=== PATIENT | male | born 1955 | race African-American/Black ===

== ENCOUNTER 2016-06-27 12:12 | Emergency (ER) | payer OTHER ==
[~2016-06-27] VITALS: Ht 193 cm; Wt 91.0 kg
[2016-06-27 13:42] LABS: BASOPHILS % 0.5 % (0.0-2.0); EOSINOPHILS % 2.1 % (0.0-5.0); HEMATOCRIT. 30.1 % (42.0-52.0); HEMOGLOBIN. 10.1 g/dL (14.0-18.0); MEAN CORPUSCULAR HEMOGLOBIN 27.7 pg (28.0-32.0); MEAN CORPUSCULAR HGB CONC 33.4 g/dL (31.0-37.0); MONOCYTES % 7.3 % (2.0-8.0); NEUTROPHILS % 57.1 % (40.0-76.0); PLATELET 263 x1000/uL (130-400); RED BLOOD CELL COUNT 3.63 mill/uL (4.7-6.1); RED CELL DISTRIBUTION WIDTH 14.3 % (11.6-14.6)
[2016-06-27 13:46] LABS: CHLORIDE 107 mEq/L (98-107)
[2016-06-27 13:50] LABS: ANION GAP 11; CALCIUM 8.9 mg/dL (8.5-10.1); CARBON DIOXIDE 29 mEq/L (21-32); INDEX HEMOLYSI 1 (1-3); INDEX ICTERIC 1 (1-4); INDEX LIPEMIC 1 (1-3); UREA NITROGEN BLOOD 14 mg/dL (7-21)
[2016-06-27 13:55] LABS: eGFR > 60 mL/min (>60)
[2016-06-27 15:26] VITALS: BP 152/95
[2016-06-27] MEDS ORDERED: IBUPROFEN 800MG TABLET PO ONE (17:00)
== END 2016-06-27 17:28 | disposition home or self-care (01) ==
LOC: ER 12:31
DX: M79.604 Pain in right leg (principal); G89.29 Other chronic pain; M54.31 Sciatica, right side; I10 Essential (primary) hypertension; Z85.46 Personal history of malignant neoplasm of prostate
CPT/HCPCS: 36415; 80048; 85025; 99284; Z7610

== ENCOUNTER 2016-09-24 03:03 | Inpatient (IN) | payer OTHER ==
[~2016-09-24] VITALS: Ht 193 cm; Wt 78.2 kg
[2016-09-24 07:31] LABS: BASOPHILS % 0.6 % (0.0-2.0); EOSINOPHILS % 0.6 % (0.0-5.0); HEMATOCRIT. 32.4 % (42.0-52.0); LYMPHOCYTES % 21.1 % (20.0-50.0); MEAN CORPUSCULAR VOLUME 79.8 fL (80.0-94.0); MEAN PLATELET VOLUME 7.7 fl (7.4-10.4); MONOCYTES % 7.4 % (2.0-8.0); NEUTROPHILS % 70.3 % (40.0-76.0); PLATELET 185 x1000/uL (130-400); RED BLOOD CELL COUNT 4.06 mill/uL (4.7-6.1); RED CELL DISTRIBUTION WIDTH 13.2 % (11.6-14.6)
[2016-09-24 07:38] LABS: CHLORIDE 95 mEq/L (98-107)
[2016-09-24 07:50] LABS: CARBON DIOXIDE 28 mEq/L (21-32)
[2016-09-24 08:04] LABS: CLARITY URINE CLEAR (CLEAR); COLOR URINE YELLOW (YELLOW); GLUCOSE URINE NEGATIVE (NEGATIVE); KETONES URINE TRACE (NEGATIVE); LEUKOCYTE ESTERASE URINE NEGATIVE (NEGATIVE); NITRITE URINE NEGATIVE (NEGATIVE); OCCULT BLOOD URINE NEGATIVE (NEGATIVE); PROTEIN URINE NEGATIVE (NEGATIVE); SPECIFIC GRAVITY URINE 1.014 (1.005-1.030); UROBILINOGEN URINE 0.2 E.U./dL (0.2-1.0)
[2016-09-24] MEDS ORDERED: IBUPROFEN 600MG TABLET PO ONE (08:15)
[2016-09-24] MEDS ORDERED: CYCLOBENZAPRINE 10MG TABLET PO ONE (08:15)
[2016-09-24] MEDS ORDERED: SODIUM CHLORIDE 0.9% 1,000 ML IV ONE (12:26)
[2016-09-24] MEDS ORDERED: DEXAMETHASONE 10MG/ML 1ML VIAL IV ONE (12:30)
[2016-09-24 12:48] LABS: INR 1.1; PARTIAL THROMBOPLASTIN TIME 30.2 sec (24.0-34.0); PROTHROMBIN TIME 11.7 sec
[2016-09-24 13:59] LABS: *AMPHETAMINES SCREEN URINE NEGATIVE (NEGATIVE); *BARBITURATES SCREEN URINE NEGATIVE (NEGATIVE); *BENZODIAZEPINES SCREEN URINE NEGATIVE (NEGATIVE); *COCAINE SCREEN URINE PRESUMTIVE POSITIVE (NEGATIVE); CANNABINOID URINE SCREEN NEGATIVE (NEGATIVE); METHADONE URINE SCREEN NEGATIVE (NEGATIVE); OPIATES URINE SCREEN PRESUMTIVE POSITIVE (NEGATIVE); PHENCYCLIDINE URINE SCREEN NEGATIVE (NEGATIVE)
[2016-09-24 16:49] VITALS: BP 124/76
[2016-09-24 17:00] VITALS: BP 135/75
[2016-09-24] MEDS ORDERED: BICA50TA2 PO (17:32)
[2016-09-24] MEDS ORDERED: METH-24 PO (17:32)
[2016-09-24] MEDS ORDERED: ATOR20TA65 PO (17:32)
[2016-09-24] MEDS ORDERED: TRAM50TA3 PO (17:32)
[2016-09-24] MEDS ORDERED: DETLA2 PO (17:32)
[2016-09-24] MEDS ORDERED: OXYB5TAB11 PO (17:32)
[2016-09-24] MEDS ORDERED: GABA-531 PO (17:32)
[2016-09-24] MEDS ORDERED: AMLO10TA80 PO (17:32)
[2016-09-24] MEDS ORDERED: IBUP-1509 PO (17:32)
[2016-09-24] MEDS ORDERED: TAMS0.4C31 PO (17:32)
[2016-09-24] MEDS ORDERED: CARV25TA47 PO (17:32)
[2016-09-24 18:01] VITALS: BP 134/66
[2016-09-24] MEDS ORDERED: IPRATROPIUM/ALBUTEROL 0.5-3(2.5)MG/3ML NEB INH PRN (18:45)
[2016-09-24] MEDS ORDERED: MAGNESIUM/ALUMINUM HYDROXIDE/SIMETHICONE 30ML UDC PO PRN (18:45)
[2016-09-24] MEDS ORDERED: ACETAMINOPHEN 325MG TABLET PO PRN (18:45)
[2016-09-24] MEDS ORDERED: CLONIDINE 0.1MG TABLET PO PRN (18:45)
[2016-09-24] MEDS ORDERED: ONDANSETRON HCL 4MG/2ML VIAL IV PRN (18:45)
[2016-09-24 20:00] VITALS: BP 115/75
[2016-09-24] MEDS: HEPARIN 5000 UNITS/ML VIAL SUBCUT SCH (20:19)
[2016-09-24] MEDS: PANTOPRAZOLE 40MG DR TABLET PO SCH (20:19)
[2016-09-24 22:00] VITALS: BP 104/50
[2016-09-25] VITALS (12 sets, daily range): BP systolic 103–144; BP diastolic 58–83
[2016-09-25] MEDS: DEXAMETHASONE 4MG/ML 1ML VIAL IV SCH ×4 (00:06→17:56)
[2016-09-25 06:45] LABS: BASOPHILS % 0.3 % (0.0-2.0); HEMATOCRIT. 33.7 % (42.0-52.0); HEMOGLOBIN. 11.4 g/dL (14.0-18.0); LYMPHOCYTES % 15.7 % (20.0-50.0); MONOCYTES % 3.9 % (2.0-8.0); NEUTROPHILS % 80.1 % (40.0-76.0); PLATELET 236 x1000/uL (130-400); RED BLOOD CELL COUNT 4.21 mill/uL (4.7-6.1); RED CELL DISTRIBUTION WIDTH 13.4 % (11.6-14.6)
[2016-09-25] MEDS: PANTOPRAZOLE 40MG DR TABLET PO SCH (06:58)
[2016-09-25 07:11] LABS: CARBON DIOXIDE 26 mEq/L (21-32); CHLORIDE 98 mEq/L (98-107); HDL CHOLESTEROL 42 mg/dL (40-59); LDL CHOLESTEROL 128 mg/dL (5-100)
[2016-09-25] MEDS: HEPARIN 5000 UNITS/ML VIAL SUBCUT SCH ×2 (08:44→21:20)
[2016-09-25] MEDS ORDERED: NICOTINE 21MG PATCH TD SCH (13:00)
[2016-09-25] MEDS: FAMOTIDINE 20MG TABLET PO SCH (16:17)
[2016-09-25] MEDS: MORPHINE SULFATE 2 MG/ML CPJ (NOT FOR IM USE) IV PRN ×2 (16:18→20:37)
[2016-09-25] MEDS: HYDROCODONE/ACETAMINOPHEN 5/325MG TABLET PO PRN (17:59)
[2016-09-25] MEDS ORDERED: DEXAMETHASONE 4MG/ML 1ML VIAL IV SCH (18:00)
[2016-09-25] MEDS: ATORVASTATIN CALCIUM 10MG TABLET PO SCH (21:19)
[2016-09-25] MEDS: ZOLPIDEM TARTRATE 5MG TABLET PO PRN (21:59)
[2016-09-26] VITALS (13 sets, daily range): BP systolic 94–130; BP diastolic 49–86
[2016-09-26] MEDS: DEXAMETHASONE 4MG/ML 1ML VIAL IV SCH ×5 (00:43→23:45)
[2016-09-26 06:32] LABS: BASOPHILS % 0.1 % (0.0-2.0); EOSINOPHILS % 0.1 % (0.0-5.0); HEMATOCRIT. 31.6 % (42.0-52.0); HEMOGLOBIN. 10.8 g/dL (14.0-18.0); LYMPHOCYTES % 16.4 % (20.0-50.0); MEAN CORPUSCULAR VOLUME 79.5 fL (80.0-94.0); MEAN PLATELET VOLUME 8.2 fl (7.4-10.4); MONOCYTES % 5.3 % (2.0-8.0); NEUTROPHILS % 78.1 % (40.0-76.0); PLATELET 251 x1000/uL (130-400); RED BLOOD CELL COUNT 3.98 mill/uL (4.7-6.1); RED CELL DISTRIBUTION WIDTH 13.1 % (11.6-14.6)
[2016-09-26 06:42] LABS: CARBON DIOXIDE 26 mEq/L (21-32); CHLORIDE 99 mEq/L (98-107)
[2016-09-26] MEDS: MORPHINE SULFATE 2 MG/ML CPJ (NOT FOR IM USE) IV PRN ×4 (09:13→22:37)
[2016-09-26] MEDS: FAMOTIDINE 20MG TABLET PO SCH ×2 (09:13→17:14)
[2016-09-26] MEDS: HEPARIN 5000 UNITS/ML VIAL SUBCUT SCH ×2 (09:19→20:47)
[2016-09-26] MEDS: NICOTINE 21MG PATCH TD SCH (09:20)
[2016-09-26] MEDS: HYDROCODONE/ACETAMINOPHEN 5/325MG TABLET PO PRN ×3 (11:58→20:46)
[2016-09-26] MEDS ORDERED: GADOBENATE DIMEGLUMINE 529 MG/ML 10ML IV ONE (12:59)
[2016-09-26] MEDS: ATORVASTATIN CALCIUM 10MG TABLET PO SCH (20:45)
[2016-09-27] VITALS (14 sets, daily range): BP systolic 98–164; BP diastolic 52–93
[2016-09-27] MEDS: ZOLPIDEM TARTRATE 5MG TABLET PO PRN ×2 (01:26→22:44)
[2016-09-27] MEDS: DEXAMETHASONE 4MG/ML 1ML VIAL IV SCH ×3 (06:06→17:15)
[2016-09-27] MEDS: FAMOTIDINE 20MG TABLET PO SCH ×2 (08:00→16:47)
[2016-09-27] MEDS: HEPARIN 5000 UNITS/ML VIAL SUBCUT SCH ×2 (08:00→21:07)
[2016-09-27] MEDS: NICOTINE 21MG PATCH TD SCH (08:00)
[2016-09-27] MEDS: MORPHINE SULFATE 2 MG/ML CPJ (NOT FOR IM USE) IV PRN ×2 (10:51→19:39)
[2016-09-27] MEDS: HYDROCODONE/ACETAMINOPHEN 5/325MG TABLET PO PRN (14:53)
[2016-09-27] MEDS: ATORVASTATIN CALCIUM 10MG TABLET PO SCH (21:06)
[2016-09-27] MEDS: CYCLOBENZAPRINE 10MG TABLET PO SCH (21:06)
[2016-09-28] VITALS (17 sets, daily range): BP systolic 98–143; BP diastolic 46–89
[2016-09-28] MEDS: DEXAMETHASONE 4MG/ML 1ML VIAL IV SCH ×4 (00:44→17:16)
[2016-09-28] MEDS: CYCLOBENZAPRINE 10MG TABLET PO SCH ×2 (08:22→21:26)
[2016-09-28] MEDS: FAMOTIDINE 20MG TABLET PO SCH ×2 (08:22→17:16)
[2016-09-28] MEDS: HEPARIN 5000 UNITS/ML VIAL SUBCUT SCH ×2 (08:25→21:27)
[2016-09-28] MEDS: NICOTINE 21MG PATCH TD SCH (08:26)
[2016-09-28] MEDS: HYDROCODONE/ACETAMINOPHEN 5/325MG TABLET PO PRN (12:31)
[2016-09-28] MEDS: MORPHINE SULFATE 2 MG/ML CPJ (NOT FOR IM USE) IV PRN ×2 (15:01→21:28)
[2016-09-28] MEDS: ATORVASTATIN CALCIUM 10MG TABLET PO SCH (21:26)
[2016-09-28] MEDS: ZOLPIDEM TARTRATE 5MG TABLET PO PRN (22:45)
[2016-09-29] VITALS (14 sets, daily range): BP systolic 99–142; BP diastolic 48–88
[2016-09-29] MEDS: DEXAMETHASONE 4MG/ML 1ML VIAL IV SCH ×3 (00:12→13:26)
[2016-09-29] MEDS: FAMOTIDINE 20MG TABLET PO SCH (09:23)
[2016-09-29] MEDS: HEPARIN 5000 UNITS/ML VIAL SUBCUT SCH (09:24)
[2016-09-29] MEDS: CYCLOBENZAPRINE 10MG TABLET PO SCH (09:24)
[2016-09-29] MEDS: MORPHINE SULFATE 2 MG/ML CPJ (NOT FOR IM USE) IV PRN (09:27)
[2016-09-29] MEDS: NICOTINE 21MG PATCH TD SCH (13:26)
[2016-09-29] MEDS: HYDROCODONE/ACETAMINOPHEN 5/325MG TABLET PO PRN (15:41)
== END 2016-09-29 16:12 | DRG 500 ==
LOC: ER 03:03 → ENRESERV 13:41 → CANRESERV 13:41 → ENRESERV 14:16 → CANRESERV 14:30 → ENRESERV 14:30 → 3WST 15:22 → EDBEDREQSVC 15:23 → ENRESERV 15:41 → 3WST 09-25 13:53
PROVIDERS: ADMIT Internal Medicine; ATTEND Internal Medicine
DX: C61 Malignant neoplasm of prostate (principal); E43 Unspecified severe protein-calorie malnutrition; C79.11 Secondary malignant neoplasm of bladder; C79.51 Secondary malignant neoplasm of bone; M48.04 Spinal stenosis, thoracic region; M48.54XA Collapsed vertebra, not elsewhere classified, thoracic region, initial encounter for fracture; G58.9 Mononeuropathy, unspecified; D64.9 Anemia, unspecified; F14.90 Cocaine use, unspecified, uncomplicated; F17.210 Nicotine dependence, cigarettes, uncomplicated; G89.29 Other chronic pain; I10 Essential (primary) hypertension; M51.37 Other intervertebral disc degeneration, lumbosacral region; Z85.46 Personal history of malignant neoplasm of prostate; M48.07 Spinal stenosis, lumbosacral region; Z68.21 Body mass index [BMI] 21.0-21.9, adult
CPT/HCPCS: 36415; 71010; 72146; 72147; 72148; 72156; 80048; 80053; 80061; 80305; 81003; 83690; 83735; 84153; 84443; 85025; 85610; 85730; 87040; 93005; 93971; 96361; 96374; 97163; 99291; A9577; J1100; J1644; J2270; J7030; J7620

== ENCOUNTER 2016-10-06 11:55 | Emergency (ER) | payer OTHER ==
[~2016-10-06] VITALS: Ht 177.8 cm; Wt 75.0 kg
[~2016-10-06 11:55] MED LIST: AMLO10TA80 PO; ATOR20TA65 PO; BICA50TA2 PO; CARV25TA47 PO; DETLA2 PO; GABA-531 PO; IBUP-1509 PO; METH-24 PO; OXYB5TAB11 PO; TAMS0.4C31 PO; TRAM50TA3 PO
[2016-10-06] MEDS ORDERED: MORPHINE SULFATE 10 MG/ML CPJ IM ONE (12:45)
[2016-10-06 18:03] VITALS: BP 120/76
== END 2016-10-06 18:08 ==
LOC: ER 12:11
DX: Z85.46 Personal history of malignant neoplasm of prostate (principal); M54.41 Lumbago with sciatica, right side; I10 Essential (primary) hypertension; E78.00 Pure hypercholesterolemia, unspecified; K21.9 Gastro-esophageal reflux disease without esophagitis; M48.00 Spinal stenosis, site unspecified
CPT/HCPCS: 96372; 99283; J2270

== ENCOUNTER 2016-12-20 19:15 | Inpatient (IN) | payer OTHER ==
[~2016-12-20] VITALS: Ht 195.6 cm; Wt 86.2 kg
[~2016-12-20 19:15] MED LIST changes: -IBUP-1509 PO; +IBUP-2028 PO; -METH-24 PO; +METH-375 PO
[2016-12-20] MEDS ORDERED: MORPHINE SULFATE 4 MG/ML CPJ (NOT FOR IM USE) IV STA (19:42)
[2016-12-20 20:30] LABS: BASOPHILS % 0.2 % (0.0-2.0); EOSINOPHILS % 0.5 % (0.0-5.0); HEMATOCRIT. 22.6 % (42.0-52.0); HEMOGLOBIN. 7.5 g/dL (14.0-18.0); MEAN CORPUSCULAR HEMOGLOBIN 26.7 pg (28.0-32.0); MEAN CORPUSCULAR VOLUME 80.6 fL (80.0-94.0); MEAN PLATELET VOLUME 6.6 fl (7.4-10.4); MONOCYTES % 11.8 % (2.0-8.0); NEUTROPHILS % 73.5 % (40.0-76.0); PLATELET 292 x1000/uL (130-400); RED CELL DISTRIBUTION WIDTH 16.8 % (11.6-14.6)
[2016-12-20 20:35] LABS: CHLORIDE 104 mEq/L (98-107)
[2016-12-20 20:36] LABS: INR 1.2
[2016-12-20 20:41] LABS: CARBON DIOXIDE 26 mEq/L (21-32)
[2016-12-20 21:29] LABS: CLARITY URINE CLOUDY (CLEAR); COLOR URINE YELLOW (YELLOW); GLUCOSE URINE NEGATIVE (NEGATIVE); KETONES URINE NEGATIVE (NEGATIVE); LEUKOCYTE ESTERASE URINE NEGATIVE (NEGATIVE); NITRITE URINE NEGATIVE (NEGATIVE); OCCULT BLOOD URINE NEGATIVE (NEGATIVE); PROTEIN URINE 2+ (NEGATIVE); SPECIFIC GRAVITY URINE 1.027 (1.005-1.030); UROBILINOGEN URINE 0.2 E.U./dL (0.2-1.0)
[2016-12-20 21:47] LABS: *AMPHETAMINES SCREEN URINE NEGATIVE (NEGATIVE); *BARBITURATES SCREEN URINE NEGATIVE (NEGATIVE); *BENZODIAZEPINES SCREEN URINE NEGATIVE (NEGATIVE); *COCAINE SCREEN URINE PRESUMTIVE POSITIVE (NEGATIVE); CANNABINOID URINE SCREEN NEGATIVE (NEGATIVE); METHADONE URINE SCREEN NEGATIVE (NEGATIVE); OPIATES URINE SCREEN NEGATIVE (NEGATIVE); PHENCYCLIDINE URINE SCREEN NEGATIVE (NEGATIVE)
[2016-12-20] MEDS ORDERED: KETOROLAC 30MG/ML VIAL IV ONE (23:00)
[2016-12-21] MEDS ORDERED: SODIUM CHLORIDE 0.9% 1,000 ML IV SCH (00:26)
[2016-12-21] MEDS ORDERED: IBUPROFEN 600MG TABLET PO PRN (00:30)
[2016-12-21] MEDS ORDERED: ACETAMINOPHEN 325MG TABLET PO PRN ×2 (00:30→12:30)
[2016-12-21 04:00] VITALS: BP 111/71
[2016-12-21 05:00] VITALS: BP 103/63
[2016-12-21 08:00] VITALS: BP 115/70
[2016-12-21 12:00] VITALS: BP 102/64
[2016-12-21] MEDS ORDERED: CLONIDINE 0.1MG TABLET PO PRN (12:30)
[2016-12-21] MEDS ORDERED: DIPHENHYDRAMINE 50MG/ML VIAL IV PRN (12:30)
[2016-12-21] MEDS ORDERED: HYDROCODONE/ACETAMINOPHEN 5/325MG TABLET PO PRN (12:30)
[2016-12-21] MEDS ORDERED: IPRATROPIUM/ALBUTEROL 0.5-3(2.5)MG/3ML NEB INH PRN (12:30)
[2016-12-21] MEDS ORDERED: ONDANSETRON HCL 4MG/2ML VIAL IV PRN (12:30)
[2016-12-21] MEDS ORDERED: DOCUSATE SODIUM 100MG CAPSULE PO PRN (12:45)
[2016-12-21] MEDS: HYDROCODONE/ACETAMINOPHEN 5/325MG TABLET PO PRN (14:58)
[2016-12-21 16:00] VITALS: BP 133/89
[2016-12-21] MEDS: MORPHINE SULFATE 4 MG/ML CPJ (NOT FOR IM USE) IV PRN ×2 (16:31→20:42)
[2016-12-21 20:00] VITALS: BP 111/59
[2016-12-22] VITALS (10 sets, daily range): BP systolic 116–150; BP diastolic 68–86
[2016-12-22] MEDS: MORPHINE SULFATE 4 MG/ML CPJ (NOT FOR IM USE) IV PRN ×5 (01:03→20:44)
[2016-12-22 06:20] LABS: BASOPHILS % 0.4 % (0.0-2.0); EOSINOPHILS % 1.2 % (0.0-5.0); HEMATOCRIT. 22.1 % (42.0-52.0); HEMOGLOBIN. 7.3 g/dL (14.0-18.0); LYMPHOCYTES % 16.8 % (20.0-50.0); MEAN CORPUSCULAR HEMOGLOBIN 26.9 pg (28.0-32.0); MEAN CORPUSCULAR VOLUME 81.1 fL (80.0-94.0); MEAN PLATELET VOLUME 6.4 fl (7.4-10.4); MONOCYTES % 8.4 % (2.0-8.0); NEUTROPHILS % 73.2 % (40.0-76.0); PLATELET 321 x1000/uL (130-400); RED BLOOD CELL COUNT 2.73 mill/uL (4.7-6.1); RED CELL DISTRIBUTION WIDTH 16.2 % (11.6-14.6)
[2016-12-22 06:28] LABS: CARBON DIOXIDE 26 mEq/L (21-32); CHLORIDE 103 mEq/L (98-107); HDL CHOLESTEROL 34 mg/dL (40-59); LDL CHOLESTEROL 109 mg/dL (5-100)
[2016-12-22] MEDS ORDERED: CYCL5TAB PO (11:16)
[2016-12-22] MEDS ORDERED: CYCLOBENZAPRINE 10MG TABLET PO PRN (12:00)
[2016-12-22] MEDS: CYCLOBENZAPRINE 10MG TABLET PO PRN ×2 (12:15→20:28)
[2016-12-22] MEDS: GABAPENTIN 300MG CAPSULE PO PRN ×2 (12:15→20:28)
[2016-12-22] MEDS: HYDROCODONE/ACETAMINOPHEN 5/325MG TABLET PO PRN ×2 (12:16→18:34)
[2016-12-23] VITALS: BP 143/89
[2016-12-23 06:33] LABS: CARBON DIOXIDE 28 mEq/L (21-32); CHLORIDE 103 mEq/L (98-107)
[2016-12-23 06:52] LABS: BASOPHILS % 0.3 % (0.0-2.0); EOSINOPHILS % 1.9 % (0.0-5.0); HEMATOCRIT. 25.3 % (42.0-52.0); HEMOGLOBIN. 8.3 g/dL (14.0-18.0); LYMPHOCYTES % 8.3 % (20.0-50.0); MEAN CORPUSCULAR HEMOGLOBIN 26.7 pg (28.0-32.0); MEAN CORPUSCULAR VOLUME 81.1 fL (80.0-94.0); MEAN PLATELET VOLUME 6.3 fl (7.4-10.4); MONOCYTES % 5.7 % (2.0-8.0); NEUTROPHILS % 83.8 % (40.0-76.0); PLATELET 330 x1000/uL (130-400); RED BLOOD CELL COUNT 3.12 mill/uL (4.7-6.1); RED CELL DISTRIBUTION WIDTH 15.9 % (11.6-14.6)
[2016-12-23 08:00] VITALS: BP 126/87
[2016-12-23] MEDS: MORPHINE SULFATE 4 MG/ML CPJ (NOT FOR IM USE) IV PRN (08:24)
[2016-12-23] MEDS: CYCLOBENZAPRINE 10MG TABLET PO PRN (11:34)
[2016-12-23 11:40] VITALS: BP 126/87
[2016-12-23 12:00] VITALS: BP 130/87
[2016-12-23 13:37] LABS: TOTAL IRON BINDING CAPACITY 163 ug/dL (250-450)
[2016-12-23 13:59] LABS: FOLIC ACID (FOLATE) SERUM 9.6 ng/mL (>5.38)
== END 2016-12-23 15:50 | disposition home or self-care (01) | DRG 343 ==
LOC: ER 19:15 → 6EST 12-21 00:29 → ENRESERV 12-21 02:32
PROVIDERS: ADMIT Internal Medicine; ATTEND Internal Medicine
PROC: 30233N1 Transfusion of Nonautologous Red Blood Cells into Peripheral Vein, Percutaneous Approach (ICD-10-PCS; principal; 2016-12-22)
DX: M84.58XA Pathological fracture in neoplastic disease, other specified site, initial encounter for fracture (principal); C79.51 Secondary malignant neoplasm of bone; C61 Malignant neoplasm of prostate; E44.0 Moderate protein-calorie malnutrition; I10 Essential (primary) hypertension; D63.8 Anemia in other chronic diseases classified elsewhere; E78.5 Hyperlipidemia, unspecified; E78.00 Pure hypercholesterolemia, unspecified; K21.9 Gastro-esophageal reflux disease without esophagitis; R74.8 Abnormal levels of other serum enzymes; F14.90 Cocaine use, unspecified, uncomplicated; Z79.899 Other long term (current) drug therapy; Z68.22 Body mass index [BMI] 22.0-22.9, adult
CPT/HCPCS: 36415; 72131; 80048; 80053; 80061; 80305; 81001; 82607; 82728; 82746; 83540; 83550; 84153; 85025; 85610; 86850; 86900; 86920; 87040; 87086; 96361; 96374; 96375; 97162; 99285; J1885; J2270; J7030; J7050; P9016